=== PATIENT | male | born 1935 | race Caucasian/White ===

== ENCOUNTER → 2016-10-30 | Outpatient (CLI) | payer MEDICARE, BC | LOC: KOH-I 08:13 | DX: R74.8 Abnormal levels of other serum enzymes (principal); E80.6 Other disorders of bilirubin metabolism; K76.0 Fatty (change of) liver, not elsewhere classified | CPT/HCPCS: 76705 ==

== ENCOUNTER 2020-12-09 11:24 | Emergency (ER) | payer MEDICARE, SELFPAY ==
[2020-12-09 13:11] LABS: BUN/CREATININE RATIO 12 (0-10)
[2020-12-09 13:21] LABS: HEMOGLOBIN 16.9 gm/dl (14.0-17.5); RED BLOOD COUNT 5.37 M/UL (4.20-5.50); WHITE BLOOD COUNT 9.1 K/UL (4.5-11.0)
[2020-12-09] MEDS ORDERED: CEPHALEXIN500 M1 PO (13:58)
[2020-12-09] MEDS ORDERED: ANTI-ITCH28 GM TP (13:58)
== END 2020-12-09 14:15 | disposition home or self-care (01) ==
LOC: ER1 11:24
PROVIDERS: Physician Assistant Medical
DX: R21 Rash and other nonspecific skin eruption (principal); E11.9 Type 2 diabetes mellitus without complications; I10 Essential (primary) hypertension; Z79.01 Long term (current) use of anticoagulants; Z79.899 Other long term (current) drug therapy; Z87.891 Personal history of nicotine dependence
CPT/HCPCS: 80053; 85025; 85652; 86140; 99283

== ENCOUNTER → 2021-01-16 | Outpatient (CLI) | payer MEDICARE, SELFPAY ==
[~2021-01-16] MED LIST: ANTI-ITCH28 GM TP; CEPHALEXIN500 M1 PO
== END ==
LOC: HEART 5 14:01
DX: I73.9 Peripheral vascular disease, unspecified (principal)

== ENCOUNTER → 2021-02-05 | Outpatient (CLI) | payer MEDICARE, SELFPAY | LOC: EXRD 10:42 | DX: I73.9 Peripheral vascular disease, unspecified (principal) | CPT/HCPCS: 93925 ==